=== PATIENT | female | born 2000 | race Two or more races ===

== ENCOUNTER 2019-03-05 13:16 | Emergency (ER) | payer OTHER ==
[~2019-03-05] VITALS: Ht 162.6 cm; Wt 47.6 kg
[2019-03-05] MEDS ORDERED: SYNTHROID75 MCG (14:01)
[2019-03-05] MEDS ORDERED: MECLIZINE HCL25 MG PO (18:29)
== END 2019-03-05 20:33 | disposition home or self-care (01) ==
LOC: ER 13:16
DX: R42 Dizziness and giddiness (principal)